=== PATIENT | female | born 2005 | race Two or more races ===

== ENCOUNTER 2025-03-23 12:23 | Emergency (ER) | payer OTHER ==
[~2025-03-23] VITALS: Ht 175.3 cm; Wt 61.2 kg
[2025-03-23] MEDS ORDERED: TRAMADOL HCL 50 MG TABLET PO ONE (14:00)
[2025-03-23 14:32] LABS: HEMATOCRIT 39.4 % (34.1-44.9)
[2025-03-23 14:33] LABS: BASO % 0.6 % (0.1-1.2); EOS % 1.2 % (0.7-7.0); MEAN CORPUSCULAR HEMOGLOBIN 30.2 pg (25.6-32.2); MONO % 6.5 % (4.7-12.5); NEUT % 74.3 % (34.0-71.1); PLATELET COUNT 236 K/uL (163-369); RED CELL DISTRIBUTION WIDTH 11.7 % (11.6-14.4)
[2025-03-23 14:34] LABS: EOS # 0.12 (0.04-0.54); LYMPH # 1.63 (1.18-3.74); MONO # 0.62 (0.24-0.82); NEUT # 7.14 (1.56-6.13)
[2025-03-23 14:35] LABS: HEMOGLOBIN 13.3 g/dL (11.2-15.7)
[2025-03-23 14:41] LABS: PH,URINE 5.5 (5.0-8.0); URINE APPEARANCE Clear; URINE BILIRRUBIN Negative (NEGATIVE); URINE BLOOD Large; URINE COLOR Yellow; URINE GLUCOSE Negative (NEGATIVE); URINE KETONE Negative (NEGATIVE); URINE LEUKOCYTE Trace; URINE NITRATE Negative; URINE PROTEIN Trace (NEGATIVE); URINE UROBILINOGEN 0.2 E.U./dl
[2025-03-23 14:45] LABS: URINE BACTERIA 1375.6 uL (0.0-1933); URINE RBC 710.5 uL (0.0-20.8); URINE WBC 40.8 uL (0.0-23.2)
[2025-03-23 15:09] LABS: ALBUMIN 3.5 gm/dL (3.4-5.0); ALKALINE PHOSPHATASE 85 U/L (50-136); ALT/SGPT 19 U/L (12-78); ANION GAP 11 (10.0-20.0); AST/SGOT 17 U/L (15-37); BILIRUBIN TOTAL 0.11 mg/dL (0.3-1.2); BLOOD UREA NITROGEN 12 mg/dL (7-18); BUN CREA RATIO 17 (7.0-25.0); CALCIUM 8.7 mg/dL (8.5-10.1); CARBON DIOXIDE 26 mEq/L (21-32); CHLORIDE 109 mmol/L (98-107); CREATININE SERUM 0.69 mg/dL (0.55-1.02); GFR 106.39; GLOBULINA 3.6 G/DL (2.4-3.5); GLUCOSE FASTING 86 mg/dL (65-100); HCG QUANTITATIVE < 1 mUI/mL (1-3); OSMOLALITY SERUM 282 MOSM/KG (275-295); SODIUM 142 mmol/L (136-145); TOTAL PROTEIN 7.1 gm/dL (6.4-8.2)
[2025-03-23] MEDS ORDERED: CEFTRIAXONE SODIUM 1,000 MG VIAL IM ONE (15:30)
[2025-03-23] MEDS ORDERED: CEFTRIAXONE SODIUM 1,000 MG VIAL ONE (15:34)
== END 2025-03-23 17:46 | disposition home or self-care (01) ==
LOC: ER 13:25
PROVIDERS: General Practice
DX: R10.2 Pelvic and perineal pain (principal)